=== PATIENT | female | born 1945 | race Caucasian/White ===

== ENCOUNTER 2018-08-30 11:36 | Emergency (ER) | payer OTHER ==
[2018-08-30] MEDS: ACETAMINOPHEN 500 MG TAB PO (13:36)
[2018-08-30] MEDS: PROMETHAZINE/DM (CUP) PO (13:45)
[2018-08-30] MEDS: BENZONATATE 100 MG CAP PO (13:45)
== END 2018-08-30 13:46 | disposition home or self-care (01) ==
LOC: FTE 11:36
DX: J20.9 Acute bronchitis, unspecified (principal)
CPT/HCPCS: 99283

== ENCOUNTER 2018-09-04 14:49 | Inpatient (IN) | payer OTHER ==
[2018-09-04 15:24] LABS: ADD MAN DIFF? NO
[2018-09-04 15:32] LABS: BASOPHILS % 0.1 % (0.0-2.0); EOSINOPHILS % 0.1 % (0.0-7.0); HEMATOCRIT 41.7 % (37.0-47.0); HEMOGLOBIN 14.1 g/dl (12.0-16.0); LYMPHOCYTES % 14.7 % (15.0-51.0); MEAN CORPUSCULAR HEMOGLOBIN 30.9 pg (29.0-33.0); MEAN CORPUSCULAR HGB CONC 33.8 g/dl (32.0-37.0); MEAN CORPUSCULAR VOLUME 91.4 fl (82.0-101.0); MEAN PLATELET VOLUME 10.3 fl (7.4-10.4); MONOCYTE # 0.5 10^3/ul (0.3-0.9); MONOCYTES % 7.1 % (0.0-11.0); NEUTROPHIL # 5.4 10^3/ul (1.6-7.5); NEUTROPHILS % 77.6 % (39.0-77.0); PLATELET COUNT 240 10^3/UL (140-415); RED BLOOD COUNT 4.56 10^6/ul (4.20-5.40); RED CELL DISTRIBUTION WIDTH 13.5 % (11.5-14.5)
[2018-09-04] MEDS: SOD CHLORIDE 0.9% 1,000 ML IV ×2 (15:32→20:30)
[2018-09-04] MEDS: ONDANSETRON 4 MG INJ IV ×3 (15:33→23:03)
[2018-09-04] MEDS: KETOROLAC 15 MG INJ IV ×2 (15:33)
[2018-09-04 15:48] LABS: ADD UMIC YES; UR ASCORBIC ACID 40 mg/dL (NEGATIVE); UR BACTERIA FEW /HPF (NONE SEEN); UR BILIRUBIN (Dip) 1+ mg/dL (NEGATIVE); UR BLOOD (Dip) NEGATIVE (NEGATIVE); UR CLARITY SLIGHTLY CLOUDY (CLEAR); UR COLOR AMBER (YELLOW); UR GLUCOSE (Dip) NEGATIVE (NEGATIVE); UR HYALINE CAST FEW /HPF (NONE SEEN); UR KETONES (Dip) NEGATIVE (NEGATIVE); UR LEUKOCYTE ESTERASE (Dip) NEGATIVE Leu/ul (NEGATIVE); UR MUCUS MANY /HPF (NONE SEEN); UR NITRITE (Dip) NEGATIVE (NEGATIVE); UR RBC 1 /HPF (0-5); UR SPECIFIC GRAVITY (Dip) 1.039 (1.003-1.030); UR SQUAMOUS EPITHELIAL CELL FEW /HPF (FEW); UR TOTAL PROTEIN (Dip) 1+ mg/dl (NEGATIVE); UR UROBILINOGEN (Dip) 1+ mg/dL (NEGATIVE); UR WBC 5 /HPF (0-5)
[2018-09-04 15:59] LABS: ALANINE AMINOTRANSFERASE 35 IU/L (13-69); ALBUMIN/GLOBULIN RATIO 1.17; ALKALINE PHOSPHATASE 65 IU/L (42-121); ANION GAP 11 (5-13); ASPARTATE AMINO TRANSFERASE 34 IU/L (15-46); BILIRUBIN,INDIRECT 0.6 mg/dl (0-1.1); BILIRUBIN,TOTAL 0.6 mg/dl (0.2-1.3); BLOOD UREA NITROGEN 19 mg/dl (7-20); CARBON DIOXIDE 25 mmol/L (21-31); CHLORIDE 100 mmol/L (97-110); CREATININE 0.65 mg/dl (0.44-1.00); GLUCOSE 133 mg/dl (70-220); LIPASE 52 U/L (23-300); SODIUM 136 mmol/L (135-144); TOTAL PROTEIN 7.4 g/dl (6.1-8.1)
[2018-09-04] MEDS: ACETAMINOPHEN 325 MG TAB PO ×2 (17:06→18:11)
[2018-09-04] MEDS: POTASSIUM CHLORIDE (SR) 20 MEQ TAB PO ×2 (17:07→18:12)
[2018-09-04] MEDS ORDERED: ACETAMINOPHEN 325 MG TAB PO (18:00)
[2018-09-04] MEDS ORDERED: ONDANSETRON 4 MG INJ IV (18:00)
[2018-09-04] MEDS ORDERED: METOCLOPRAMIDE 10 MG INJ IV (18:30)
[2018-09-04] MEDS ORDERED: HYDROCODONE/APAP (5/325) TAB PO (18:30)
[2018-09-04] MEDS ORDERED: NITROGLYCERIN (SL) 0.4 MG TAB SL (18:30)
[2018-09-04] MEDS ORDERED: morphine 2 MG INJ IV (18:30)
[2018-09-04] MEDS ORDERED: NACL 0.9% 3 ML SYG IV (18:30)
[2018-09-04] MEDS ORDERED: DOCUSATE SODIUM 100 MG CAP PO (18:30)
[2018-09-04] MEDS ORDERED: hydrALAzine 20 MG INJ IV (18:30)
[2018-09-04] MEDS ORDERED: LORAZEPAM 2 MG INJ IV (18:30)
[2018-09-04] MEDS ORDERED: ALBUTEROL/IPRATROPIUM (NEB) 3 ML AMP HHN (18:30)
[2018-09-04] MEDS ORDERED: MAGNESIUM HYDROXIDE 30ML CUP PO (18:30)
[2018-09-04 19:05] LABS: FREE T4 (FREE THYROXINE) 1.31 ng/dl (0.78-2.44)
[2018-09-04] MEDS: ATORVASTATIN 10 MG TAB PO (20:39)
[2018-09-04] MEDS: POTASSIUM CHLORIDE 50 ML IVPB ×2 (21:22→22:59)
[2018-09-05] MEDS: POTASSIUM CHLORIDE 50 ML IVPB (00:56)
[2018-09-05] MEDS: ACETAMINOPHEN 325 MG TAB PO ×3 (01:47→22:24)
[2018-09-05 03:19] LABS: ADD MAN DIFF? NO
[2018-09-05 03:21] LABS: WHITE BLOOD COUNT 5.8 10^3/ul (4.8-10.8)
[2018-09-05 03:21] LABS: BASOPHILS % 0.2 % (0.0-2.0); EOSINOPHILS % 0.2 % (0.0-7.0); HEMATOCRIT 39.7 % (37.0-47.0); HEMOGLOBIN 13.1 g/dl (12.0-16.0); LYMPHOCYTES # 0.7 10^3/ul (0.8-2.9); LYMPHOCYTES % 12.8 % (15.0-51.0); MEAN CORPUSCULAR HEMOGLOBIN 30.3 pg (29.0-33.0); MEAN CORPUSCULAR VOLUME 91.9 fl (82.0-101.0); MEAN PLATELET VOLUME 9.6 fl (7.4-10.4); MONOCYTE # 0.4 10^3/ul (0.3-0.9); MONOCYTES % 7.5 % (0.0-11.0); NEUTROPHIL # 4.6 10^3/ul (1.6-7.5); NEUTROPHILS % 79.1 % (39.0-77.0); PLATELET COUNT 213 10^3/UL (140-415); RED BLOOD COUNT 4.32 10^6/ul (4.20-5.40); RED CELL DISTRIBUTION WIDTH 13.6 % (11.5-14.5)
[2018-09-05 03:29] LABS: HEMOGLOBIN A1C 6.3 % (0-5.9)
[2018-09-05 03:37] LABS: CHOLESTEROL 134 mg/dl (100-200)
[2018-09-05 03:37] LABS: CHOL/HDL RATIO 2.7 RATIO; HDL CHOLESTEROL 48 mg/dl (33-92); LDL CHOLESTEROL,CALCULATED 67 mg/dl; TRIGLYCERIDES 96 mg/dl (0-149)
[2018-09-05 03:38] LABS: ANION GAP 9 (5-13); BLOOD UREA NITROGEN 14 mg/dl (7-20); CALCIUM 7.5 mg/dl (8.4-10.2); CARBON DIOXIDE 24 mmol/L (21-31); CHLORIDE 103 mmol/L (97-110); GLUCOSE 112 mg/dl (70-220); PHOSPHORUS 3.1 mg/dl (2.5-4.9); POTASSIUM 3.5 mmol/L (3.5-5.1); SODIUM 136 mmol/L (135-144)
[2018-09-05 04:08] LABS: THYROID STIMULATING HORMONE 0.068 MIU/L (0.465-4.680)
[2018-09-05] MEDS: PANTOPRAZOLE (EC) 40 MG TAB PO (06:34)
[2018-09-05] MEDS: LEVOTHYROXINE 25 MCG TAB PO (06:34)
[2018-09-05] MEDS: AMLODIPINE 5 MG TAB PO (09:18)
[2018-09-05] MEDS: ASPIRIN (EC) 81 MG TAB PO (09:18)
[2018-09-05] MEDS: METOPROLOL (XL) 25 MG TAB PO (09:18)
[2018-09-05] MEDS: ONDANSETRON 4 MG INJ IV (10:21)
[2018-09-05] MEDS: SOD CHLORIDE 0.9% 1,000 ML IV ×2 (11:26→20:53)
[2018-09-05] MEDS: ATORVASTATIN 10 MG TAB PO (21:17)
[2018-09-06] MEDS: SOD CHLORIDE 0.9% 1,000 ML IV ×3 (02:19→15:47)
[2018-09-06 05:18] LABS: ADD MAN DIFF? NO
[2018-09-06 05:22] LABS: BASOPHILS % 0.3 % (0.0-2.0); EOSINOPHILS % 0.6 % (0.0-7.0); HEMATOCRIT 38.5 % (37.0-47.0); HEMOGLOBIN 12.7 g/dl (12.0-16.0); LYMPHOCYTES # 1.3 10^3/ul (0.8-2.9); LYMPHOCYTES % 36.7 % (15.0-51.0); MEAN CORPUSCULAR HEMOGLOBIN 30.6 pg (29.0-33.0); MEAN CORPUSCULAR VOLUME 92.8 fl (82.0-101.0); MEAN PLATELET VOLUME 10.9 fl (7.4-10.4); MONOCYTE # 0.5 10^3/ul (0.3-0.9); MONOCYTES % 14.6 % (0.0-11.0); NEUTROPHIL # 1.7 10^3/ul (1.6-7.5); NEUTROPHILS % 47.5 % (39.0-77.0); PLATELET COUNT 199 10^3/UL (140-415); RED BLOOD COUNT 4.15 10^6/ul (4.20-5.40); RED CELL DISTRIBUTION WIDTH 13.7 % (11.5-14.5)
[2018-09-06 05:26] LABS: WHITE BLOOD COUNT 3.6 10^3/ul (4.8-10.8)
[2018-09-06 05:35] LABS: ANION GAP 7 (5-13); BLOOD UREA NITROGEN 5 mg/dl (7-20); CALCIUM 7.5 mg/dl (8.4-10.2); CARBON DIOXIDE 27 mmol/L (21-31); CHLORIDE 107 mmol/L (97-110); CREATININE 0.47 mg/dl (0.44-1.00); GLUCOSE 87 mg/dl (70-220); POTASSIUM 3.5 mmol/L (3.5-5.1); SODIUM 141 mmol/L (135-144)
[2018-09-06] MEDS: LEVOTHYROXINE 25 MCG TAB PO (06:18)
[2018-09-06] MEDS: PANTOPRAZOLE (EC) 40 MG TAB PO (06:18)
[2018-09-06] MEDS: ONDANSETRON 4 MG INJ IV (08:56)
[2018-09-06] MEDS: ASPIRIN (EC) 81 MG TAB PO (08:58)
[2018-09-06] MEDS: METOPROLOL (XL) 25 MG TAB PO (08:59)
[2018-09-06] MEDS: AMLODIPINE 5 MG TAB PO (08:59)
[2018-09-06] MEDS: LEVOFLOXACIN 250 MG TAB NGT (13:54)
[2018-09-06] MEDS: ATORVASTATIN 10 MG TAB PO (21:04)
[2018-09-06] MEDS: ACETAMINOPHEN 325 MG TAB PO (21:12)
[2018-09-07 05:34] LABS: ADD MAN DIFF? NO
[2018-09-07] MEDS: LEVOFLOXACIN 250 MG TAB NGT (05:34)
[2018-09-07] MEDS: PANTOPRAZOLE (EC) 40 MG TAB PO (05:35)
[2018-09-07] MEDS: LEVOTHYROXINE 25 MCG TAB PO (05:35)
[2018-09-07] MEDS: SOD CHLORIDE 0.9% 1,000 ML IV (05:41)
[2018-09-07 05:44] LABS: BASOPHILS % 0.3 % (0.0-2.0); EOSINOPHILS % 1.3 % (0.0-7.0); HEMATOCRIT 39.3 % (37.0-47.0); HEMOGLOBIN 13.1 g/dl (12.0-16.0); LYMPHOCYTES # 1.4 10^3/ul (0.8-2.9); LYMPHOCYTES % 44.8 % (15.0-51.0); MEAN CORPUSCULAR HEMOGLOBIN 30.8 pg (29.0-33.0); MEAN CORPUSCULAR HGB CONC 33.3 g/dl (32.0-37.0); MEAN CORPUSCULAR VOLUME 92.5 fl (82.0-101.0); MEAN PLATELET VOLUME 10.6 fl (7.4-10.4); MONOCYTE # 0.6 10^3/ul (0.3-0.9); MONOCYTES % 17.7 % (0.0-11.0); NEUTROPHIL # 1.1 10^3/ul (1.6-7.5); NEUTROPHILS % 35.6 % (39.0-77.0); PLATELET COUNT 208 10^3/UL (140-415); RED BLOOD COUNT 4.25 10^6/ul (4.20-5.40); RED CELL DISTRIBUTION WIDTH 13.2 % (11.5-14.5)
[2018-09-07 05:44] LABS: WHITE BLOOD COUNT 3.1 10^3/ul (4.8-10.8)
[2018-09-07 05:53] LABS: MAGNESIUM 2.3 mg/dl (1.7-2.5)
[2018-09-07 06:15] LABS: ANION GAP 10 (5-13); BLOOD UREA NITROGEN 5 mg/dl (7-20); CALCIUM 7.7 mg/dl (8.4-10.2); CARBON DIOXIDE 27 mmol/L (21-31); CHLORIDE 105 mmol/L (97-110); CREATININE 0.47 mg/dl (0.44-1.00); GLUCOSE 97 mg/dl (70-220); POTASSIUM 3.1 mmol/L (3.5-5.1); SODIUM 142 mmol/L (135-144)
[2018-09-07] MEDS: ASPIRIN (EC) 81 MG TAB PO (08:56)
[2018-09-07] MEDS: METOPROLOL (XL) 25 MG TAB PO (08:57)
[2018-09-07] MEDS: AMLODIPINE 5 MG TAB PO (08:57)
[2018-09-07] MEDS: POTASSIUM CHLORIDE (SR) 20 MEQ TAB PO ×2 (13:23→13:36)
== END 2018-09-07 16:50 | disposition home or self-care (01) | DRG 392 ==
LOC: E/R 14:49 → 2NE 17:55
DX: A08.4 Viral intestinal infection, unspecified (principal); E86.0 Dehydration; E03.9 Hypothyroidism, unspecified; E87.6 Hypokalemia; E78.5 Hyperlipidemia, unspecified; I10 Essential (primary) hypertension; R11.2 Nausea with vomiting, unspecified; R10.13 Epigastric pain; Z79.82 Long term (current) use of aspirin
CPT/HCPCS: 36415; 71045; 74176; 80048; 80053; 80061; 81001; 83036; 83690; 83735; 84100; 84439; 84443; 85025; 87040; 87086; 96374; 96375; 96376; 97161; 97166; 99285-25